=== PATIENT | female | born 1995 | race African-American/Black ===

== ENCOUNTER 2019-10-29 12:18 | Emergency (ER) | payer OTHER ==
[~2019-10-29] VITALS: Ht 162.6 cm; Wt 59.9 kg
[2019-10-29] MEDS ORDERED: cefTRIAXone SOD 250MG VIAL (J0696 PER 250MG) IM ONE (13:30)
[2019-10-29] MEDS ORDERED: AZITHROMYCIN 250MG TABLET PO ONE (13:30)
[2019-10-29] MEDS ORDERED: LIDOCAINE 1% SDV 5ML VIAL DILUENT ONE (13:30)
[2019-10-29 15:11] LABS: CHLAMYDIA DNA AMPLIFICATION POSITIVE (NEGATIVE); GC DNA AMPLIFICATION NEGATIVE (NEGATIVE)
[2019-10-29] MEDS ORDERED: FLAG500T PO (15:18)
[2019-10-29 15:24] VITALS: BP 137/68
== END 2019-10-29 15:27 | disposition home or self-care (01) ==
LOC: M ED 12:18
DX: A74.9 Chlamydial infection, unspecified (principal); B96.89 Other specified bacterial agents as the cause of diseases classified elsewhere

== ENCOUNTER → 2022-01-02 | Outpatient (CLI) | payer OTHER ==
[~2022-01-02] VITALS: Ht 162.6 cm; Wt 85.2 kg
[~2022-01-02] MED LIST: FLAG500T PO; PREN1CHW6 PO; TUMS500C PO
[2022-01-02 23:48] VITALS: BP 132/64
== END ==
LOC: M LDO 23:36
PROVIDERS: ATTEND Obstetrics & Gynecology
DX: O47.1 False labor at or after 37 completed weeks of gestation (principal); Z3A.38 38 weeks gestation of pregnancy
CPT/HCPCS: 59025; G0378; G0463

== ENCOUNTER 2022-01-04 06:25 | Outpatient (CLI) | payer OTHER ==
[2022-01-04 06:50] VITALS: BP 134/78
[2022-01-04 09:19] VITALS: BP 135/69
== END 2022-01-04 09:22 | disposition home or self-care (01) ==
LOC: M LDO 06:25
PROVIDERS: ATTEND Obstetrics & Gynecology
DX: O47.1 False labor at or after 37 completed weeks of gestation (principal); Z3A.39 39 weeks gestation of pregnancy; O23.593 Infection of other part of genital tract in pregnancy, third trimester
CPT/HCPCS: 59025; G0463

== ENCOUNTER 2022-01-09 21:18 | Inpatient (IN) | payer OTHER ==
[~2022-01-09] VITALS: Ht 162.6 cm; Wt 85.1 kg
[2022-01-09 21:33] VITALS: BP 136/72
[2022-01-09] MEDS ORDERED: LR 1,000 ML IV ONE (22:30)
[2022-01-09] MEDS ORDERED: PENICILLIN G POTASSIUM IV 5 MU in D5W MINI-BAG PLUS 100 ML IV STA (23:41)
[2022-01-09] MEDS ORDERED: METHYLERGONOVINE MALEATE 0.2 MG/ML VIAL (J2210) IM PRN (23:45)
[2022-01-09] MEDS ORDERED: OXYTOCIN INJ 10 UNITS/ML VIAL (J2590) IV PRN (23:45)
[2022-01-09] MEDS ORDERED: LACTATED RINGER'S 1000 ML IV ONE (23:45)
[2022-01-09] MEDS ORDERED: TRANEXAMIC ACID INJection 1,000 MG in NS 100 ML IV PRN (23:45)
[2022-01-09] MEDS ORDERED: OXYTOCIN DRIP 30 UNITS in IV 1 EA IV PRN ×4 (23:45)
[2022-01-09] MEDS ORDERED: LR 1,000 ML IV SCH (23:45)
[2022-01-09] MEDS: LR 1,000 ML IV SCH (23:47)
[2022-01-09] MEDS ORDERED: OXYTOCIN DRIP 30 UNITS in IV 1 EA IV SCH (23:50)
[2022-01-09 23:55] LABS: HEMATOCRIT 36.3 % (36.0-47.0); HEMOGLOBIN 12.3 g/dl (12.0-15.5); MEAN CORPUSCULAR HEMOGLOBIN 33.2 pg (27.0-33.0); MEAN CORPUSCULAR HGB CONC 33.9 g/dl (32.0-36.5); MEAN CORPUSCULAR VOLUME 98.1 fl (80.0-96.0); PLATELET COUNT, AUTOMATED 174 10^3/uL (150-450); WHITE BLOOD COUNT 9.4 10^3/uL (4.0-10.0)
[2022-01-10] VITALS (25 sets, daily range): BP systolic 100–164; BP diastolic 50–80
[2022-01-10] MEDS ORDERED: FENTANYL 2MCG/ML ROPIVACAINE 0.2% IN 0.9% NACL 100ML IVBAG As Ordered ONE (00:21)
[2022-01-10] MEDS ORDERED: FENTANYL/ROPIVACAINE/NACL BAG 100 ML EPIDURAL SCH (00:35)
[2022-01-10] MEDS ORDERED: ONDANSETRON 4MG 2ML VIAL IV PRN ×4 (00:35→11:50)
[2022-01-10] MEDS ORDERED: NALOXONE INJ 0.4MG/1ML VIAL (J2310 PER 1MG) IV PRN ×3 (00:35→04:15)
[2022-01-10] MEDS ORDERED: EPIDURAL/PCA KEYS XX PRN (00:35)
[2022-01-10] MEDS ORDERED: LR 500 ML IV PRN (00:35)
[2022-01-10] MEDS ORDERED: diphenhydrAMINE 50MG/ML VIAL (J1200) IV PRN ×2 (00:35→04:15)
[2022-01-10] MEDS: ePHEDrine SULFATE 25 MG/5 ML(5MG/ML) SYRINGE IVP PRN ×2 (01:49→01:54)
[2022-01-10] MEDS: LR 1,000 ML IV SCH ×2 (02:22→15:45)
[2022-01-10] MEDS ORDERED: TRANEXAMIC ACID INJection 1,000 MG in NS 100 ML IV PRN (03:20)
[2022-01-10] MEDS ORDERED: AZITHROMYCIN INJ 500 MG, VIAL MATE ADAPTER 1 EACH in NS 250 ML IV ONE (03:20)
[2022-01-10] MEDS ORDERED: ceFAZolin SOD 2 GM in IV 1 EA IV ONE (03:20)
[2022-01-10] MEDS ORDERED: BUPIVACAINE HCL 0.25% 10ML VIAL SC ONE (03:20)
[2022-01-10] MEDS ORDERED: BICITRA 30ML SOLN UDC PO ONE (03:20)
[2022-01-10] MEDS ORDERED: OXYTOCIN INJ 10 UNITS/ML VIAL (J2590) IV PRN (03:20)
[2022-01-10] MEDS ORDERED: ACETAMINOPHEN 650 MG SUPP PR ONE (03:20)
[2022-01-10] MEDS ORDERED: OXYTOCIN DRIP 30 UNITS in IV 1 EA IV PRN ×4 (03:20)
[2022-01-10] MEDS ORDERED: METHYLERGONOVINE MALEATE 0.2 MG/ML VIAL (J2210) IM PRN (03:20)
[2022-01-10] MEDS ORDERED: LIDOCAINE 2% W/EPINEPHRINE 20ML VIAL **PRES FREE As Ordered ONE (03:21)
[2022-01-10] MEDS ORDERED: OXYTOCIN 30 UNITS IN 0.9% NaCl 500ML IV BAG (J2590) As Ordered ONE ×2 (03:26→05:13)
[2022-01-10] MEDS ORDERED: ONDANSETRON 4MG 2ML VIAL As Ordered ONE (03:44)
[2022-01-10] MEDS ORDERED: PENICILLIN G POTASSIUM IV 2.5 MU in IV 1 EA IV SCH (04:00)
[2022-01-10] MEDS ORDERED: OXYTOCIN INJ 10 UNITS/ML VIAL (J2590) As Ordered ONE (04:11)
[2022-01-10] MEDS ORDERED: LR 1,000 ML IV SCH ×2 (04:15→04:55)
[2022-01-10] MEDS ORDERED: fentaNYL 100 MCG/2 ML INJECTION IV PRN (04:15)
[2022-01-10] MEDS ORDERED: **NOTE PATIENT COMMENT** MISC XX SCH (04:15)
[2022-01-10] MEDS ORDERED: oxyCODONE 5MG TAB PO PRN (04:15)
[2022-01-10] MEDS: SLF 3 ML SYR IV SCH ×3 (04:15→19:50)
[2022-01-10] MEDS ORDERED: METOCLOPRAMIDE INJ 10MG/2ML VIAL (J2765 PER 1) IV PRN (04:15)
[2022-01-10 04:20] LABS: CORD GAS ABE A -4.9; CORD GAS ABE V -1.8; CORD GAS HCO3 A 23.2 MEQ/L; CORD GAS HCO3 V 24.9 MEQ/L; CORD GAS O2 SAT A 62.2 %; CORD GAS PCO2 A 55.2 mmHg; CORD GAS PCO2 V 50.2 mmHg; CORD GAS PH A 7.241 UNITS; CORD GAS PH V 7.314 UNITS; CORD GAS PO2 A 27.4 mmHg; CORD GAS SBC A 19.7 MEQ/L; CORD GAS TCO2 A 24.9 MEQ/L; CORD GAS TCO2 V 26.5 MEQ/L
[2022-01-10] MEDS ORDERED: MORPHINE PRES-FREE INJ 10 MG/10 ML VIAL As Ordered ONE (04:28)
[2022-01-10] MEDS ORDERED: dexameTHASONE 4 MG/ML 1ML VIAL (J1100 PER 1MG) As Ordered ONE (04:30)
[2022-01-10] MEDS ORDERED: KETOROLAC 60MG 2ML VIAL As Ordered ONE (04:30)
[2022-01-10] MEDS ORDERED: RHOGAM 300 MCG (1500 IU) INJ (J2790) IM SCH (04:55)
[2022-01-10] MEDS ORDERED: MOM 30ML SUSPENSION UDC PO PRN (04:55)
[2022-01-10] MEDS ORDERED: OXYTOCIN INJ 10 UNITS/ML VIAL (J2590) IV ONE (04:55)
[2022-01-10] MEDS ORDERED: METHYLERGONOVINE MALEATE 0.2 MG TAB PO PRN (04:55)
[2022-01-10] MEDS ORDERED: OXYTOCIN DRIP 30 UNITS in IV 1 EA IV SCH (04:55)
[2022-01-10] MEDS ORDERED: PERCOCET 5MG/325MG TAB PO PRN ×2 (04:55)
[2022-01-10] MEDS ORDERED: ANUSOL HC CREAM 30GM TOP PRN (04:55)
[2022-01-10] MEDS ORDERED: TRANEXAMIC ACID INJection 1,000 MG in NS 100 ML IV ONE (04:55)
[2022-01-10] MEDS ORDERED: OXYTOCIN DRIP 30 UNITS in IV 1 EA IV ONE (04:55)
[2022-01-10] MEDS ORDERED: ACETAMINOPHEN TAB 650MG DOSE (2X325MG) PO PRN (04:55)
[2022-01-10] MEDS ORDERED: DOCUSATE SODIUM 100MG CAPSULE PO PRN (04:55)
[2022-01-10] MEDS: PRENATAL VITAMINS CHEWABLE TABLET PO SCH (09:04)
[2022-01-10] MEDS: KETOROLAC 30 MG/ML 1ML VIAL IV SCH ×3 (11:13→23:42)
[2022-01-11 02:00] VITALS: BP 101/54
[2022-01-11 06:00] VITALS: BP 108/53
[2022-01-11] MEDS: SIMETHICONE 80MG CHEW TAB PO PRN ×2 (06:28→20:59)
[2022-01-11 06:45] LABS: HEMATOCRIT 26.5 % (36.0-47.0); MEAN CORPUSCULAR HEMOGLOBIN 32.8 pg (27.0-33.0); MEAN CORPUSCULAR HGB CONC 33.2 g/dl (32.0-36.5); MEAN CORPUSCULAR VOLUME 98.9 fl (80.0-96.0); PLATELET COUNT, AUTOMATED 139 10^3/uL (150-450); RED BLOOD COUNT 2.68 10^6/uL (4.00-5.40); WHITE BLOOD COUNT 12.2 10^3/uL (4.0-10.0)
[2022-01-11 06:58] LABS: HEMOGLOBIN 8.8 g/dl (12.0-15.5)
[2022-01-11] MEDS: IBUPROFEN 600MG TAB PO PRN ×3 (08:11→23:46)
[2022-01-11] MEDS: PRENATAL VITAMINS CHEWABLE TABLET PO SCH (08:11)
[2022-01-11 10:00] VITALS: BP 111/53
[2022-01-11] MEDS: ACETAMINOPHEN 500 MG TAB PO PRN ×2 (13:04→21:00)
[2022-01-11 14:00] VITALS: BP 135/60
[2022-01-11 18:00] VITALS: BP 119/65
[2022-01-11 22:00] VITALS: BP 122/58
[2022-01-12 02:00] VITALS: BP 113/53
[2022-01-12 06:00] VITALS: BP 124/57
[2022-01-12] MEDS ORDERED: IBUP-1022 PO (07:05)
[2022-01-12] MEDS ORDERED: PRENCHW PO (07:05)
[2022-01-12] MEDS ORDERED: COLA100C5 PO (07:05)
[2022-01-12] MEDS ORDERED: PERCOCET PO (07:05)
[2022-01-12] MEDS: IBUPROFEN 600MG TAB PO PRN ×2 (08:45→16:35)
[2022-01-12] MEDS: ACETAMINOPHEN 500 MG TAB PO PRN ×2 (08:45→15:22)
[2022-01-12] MEDS: PRENATAL VITAMINS CHEWABLE TABLET PO SCH (08:45)
[2022-01-12] MEDS ORDERED: MEASLES,MUMPS,RUBELLA VACCINE INJ (MMR-II) (90707) SC.IMMUN ONE (09:00)
[2022-01-12 10:00] VITALS: BP 127/63
== END 2022-01-12 18:52 | disposition home or self-care (01) | DRG 773 ==
LOC: M LDO 21:18 → M LDI 23:37 → M OBS 01-10 06:28
PROVIDERS: ADMIT Obstetrics & Gynecology; ATTEND Obstetrics & Gynecology
PROC: 10D00Z1 Extraction of Products of Conception, Low, Open Approach (ICD-10-PCS; principal; 2022-01-10 04:04)
DX: O99.02 Anemia complicating childbirth (principal); O99.824 Streptococcus B carrier state complicating childbirth; Z3A.39 39 weeks gestation of pregnancy; O77.0 Labor and delivery complicated by meconium in amniotic fluid; D64.9 Anemia, unspecified; O76 Abnormality in fetal heart rate and rhythm complicating labor and delivery; O69.4XX0 Labor and delivery complicated by vasa previa, not applicable or unspecified; O69.81X0 Labor and delivery complicated by cord around neck, without compression, not applicable or unspecified; Z37.0 Single live birth

== ENCOUNTER 2022-01-18 12:17 | Inpatient (IN) | payer OTHER ==
[~2022-01-18] VITALS: Ht 162.6 cm; Wt 81.1 kg
[~2022-01-18 12:17] MED LIST changes: +COLA100C5 PO; +IBUP-1022 PO; +PERCOCET PO; +PRENCHW PO
[2022-01-18] MEDS ORDERED: ACET1TAB55 PO (12:30)
[2022-01-18 13:55] LABS: BASO % 0.1 % (0.0-1.0); EOS # 0.1 10^3/uL (0.0-0.5); EOS % 1.7 % (0.0-3.0); HEMATOCRIT 34.4 % (36.0-47.0); HEMOGLOBIN 11.3 g/dl (12.0-15.5); LYMPH # 1.9 10^3/uL (1.5-5.0); LYMPH % 23.2 % (24.0-44.0); MEAN CORPUSCULAR HEMOGLOBIN 32.2 pg (27.0-33.0); MEAN CORPUSCULAR HGB CONC 32.8 g/dl (32.0-36.5); MONO # 0.6 10^3/uL (0.0-0.8); MONO % 7.5 % (2.0-8.0); NEUTROPHILS # 5.6 10^3/uL (1.5-8.5); NEUTROPHILS % 66.8 % (36.0-66.0); PLATELET COUNT, AUTOMATED 295 10^3/uL (150-450); RED BLOOD COUNT 3.51 10^6/uL (4.00-5.40); WHITE BLOOD COUNT 8.4 10^3/uL (4.0-10.0)
[2022-01-18 14:10] LABS: APPEARANCE, URINE MANUAL CLEAR (CLEAR); BILIRUBIN, URINE MANUAL NEGATIVE (NEGATIVE); BLOOD URINE MANUAL POSITIVE (NEGATIVE); COLOR, URINE MANUAL YELLOW (YELLOW); GLUCOSE, URINE (UA) MANUAL NEGATIVE (NEGATIVE); KETONE, URINE MANUAL NEGATIVE (NEGATIVE); LEUKOCYTE ESTERASE, URINE MAN NEGATIVE (NEGATIVE); NITRITE, URINE MANUAL NEGATIVE (NEGATIVE); PROTEIN, URINE MANUAL NEGATIVE (NEGATIVE); UROBILINOGEN, URINE MANUAL NORMAL (NORMAL)
[2022-01-18] MEDS ORDERED: LABETALOL 100MG/20ML VIAL IV ONE (14:25)
[2022-01-18] MEDS ORDERED: MAG Sulf (L&D) 4 GM/100 ML 4 GM in IV 1 EA IV ONE (14:30)
[2022-01-18 14:35] LABS: ALBUMIN 3.1 GM/DL (3.2-5.2); ALT/SGPT 156 U/L (12-78); BILIRUBIN,DIRECT 0.2 MG/DL (0.0-0.2); BILIRUBIN,TOTAL 0.7 MG/DL (0.2-1.0); BLOOD UREA NITROGEN 11 MG/DL (7-18); CALCIUM LEVEL 8.9 MG/DL (8.5-10.1); CARBON DIOXIDE LEVEL 27 MEQ/L (21-32); CHLORIDE LEVEL 110 MEQ/L (98-107); CREATININE FOR GFR 0.77 MG/DL (0.55-1.30); GLOMERULAR FILTRATION RATE > 60.0 (>60); GLUCOSE, FASTING 72 MG/DL (70-100); POTASSIUM SERUM 4.4 MEQ/L (3.5-5.1); SODIUM LEVEL 142 MEQ/L (136-145); TOTAL PROTEIN 6.7 GM/DL (6.4-8.2)
[2022-01-18] MEDS ORDERED: hydrALAZINE 20MG/ML 1ML VIAL (J0360 PER 20MG) As Ordered ONE (14:38)
[2022-01-18] MEDS ORDERED: hydrALAZINE 20MG/ML 1ML VIAL (J0360 PER 20MG) IV ONE (14:40)
[2022-01-18] MEDS: MAG Sulf (OBGYN) 20GM/500ML 20,000 MG in IV 1 EA IV SCH (15:00)
[2022-01-18 15:09] LABS: SQUAMOUS EPITHELIAL CELL URINE MOD AMOUNT /hpf (SMALL AMT); WBC, URINE 0-1 /hpf (0-3)
[2022-01-18 15:10] LABS: BACTERIA, URINE SMALL AMOUNT; HYALINE CAST, URINE NONE SEEN /lpf (0-1); MUCUS, URINE SMALL AMOUNT (NEGATIVE)
[2022-01-18 15:31] LABS: INR 0.98; PROTHROMBIN TIME 13.4 SECONDS (12.7-14.5)
[2022-01-18 15:32] LABS: PARTIAL THROMBOPLASTIN TIME 30.8 SECONDS (25.9-37.0)
[2022-01-18 15:53] LABS: MAGNESIUM LEVEL 2.2 MG/DL (1.8-2.4); URIC ACID 7.6 MG/DL (2.6-6.0)
[2022-01-18 16:07] LABS: RSV AMPLIFICATION NEGATIVE (NEGATIVE)
[2022-01-18] MEDS ORDERED: FUROSEMIDE 40 MG TAB PO ONE (16:35)
[2022-01-18] MEDS ORDERED: CALCIUM GLUCONATE 1,000 MG in D5W MINI-BAG PLUS 100 ML IV PRN (16:35)
[2022-01-18] MEDS ORDERED: PREN1CHW6 PO (17:13)
[2022-01-18] MEDS ORDERED: HOME MED LIST COMPLETE! XX SCH (17:15)
[2022-01-18] MEDS: IBUPROFEN 600MG TAB PO SCH (18:00)
[2022-01-18] MEDS: ACETAMINOPHEN 500 MG TAB PO SCH (18:00)
[2022-01-18 22:51] VITALS: BP 137/84
[2022-01-18 23:00] VITALS: BP 137/74
[2022-01-19] VITALS (19 sets, daily range): BP systolic 121–156; BP diastolic 66–95
[2022-01-19] MEDS: MAG Sulf (OBGYN) 20GM/500ML 20,000 MG in IV 1 EA IV SCH ×2 (01:43→11:53)
[2022-01-19] MEDS: LR 1,000 ML IV SCH ×2 (01:44→11:53)
[2022-01-19] MEDS: IBUPROFEN 600MG TAB PO SCH ×3 (02:00→18:00)
[2022-01-19] MEDS: ACETAMINOPHEN 500 MG TAB PO SCH ×5 (06:00→23:57)
[2022-01-19 06:28] LABS: HEMATOCRIT 31.6 % (36.0-47.0); HEMOGLOBIN 10.6 g/dl (12.0-15.5); MEAN CORPUSCULAR HEMOGLOBIN 32.8 pg (27.0-33.0); MEAN CORPUSCULAR HGB CONC 33.5 g/dl (32.0-36.5); MEAN CORPUSCULAR VOLUME 97.8 fl (80.0-96.0); PLATELET COUNT, AUTOMATED 279 10^3/uL (150-450); RED BLOOD COUNT 3.23 10^6/uL (4.00-5.40)
[2022-01-19 07:04] LABS: ALT/SGPT 113 U/L (12-78); BILIRUBIN,TOTAL 0.6 MG/DL (0.2-1.0); GLOMERULAR FILTRATION RATE > 60.0 (>60); LDH LACTATE DEHYDROGENASE 323 U/L (84-246); URIC ACID 8.6 MG/DL (2.6-6.0)
[2022-01-19] MEDS ORDERED: LABETALOL 200 MG TAB PO SCH (18:00)
[2022-01-20] VITALS (29 sets, daily range): BP systolic 120–195; BP diastolic 54–101
[2022-01-20] MEDS: IBUPROFEN 600MG TAB PO SCH ×2 (02:07→10:00)
[2022-01-20] MEDS: LR 1,000 ML IV SCH ×2 (03:50→17:10)
[2022-01-20] MEDS ORDERED: **hydrALAZINE** 10 MG TAB PO ONE (04:00)
[2022-01-20] MEDS: ACETAMINOPHEN 500 MG TAB PO SCH ×3 (06:02→19:28)
[2022-01-20] MEDS: LABETALOL 200 MG TAB PO SCH ×2 (06:05→17:31)
[2022-01-20] MEDS ORDERED: LABE20TAB PO (07:14)
[2022-01-20] MEDS ORDERED: NIFEdipine 30 MG XL TAB PO STA ×2 (14:27→14:43)
[2022-01-20] MEDS ORDERED: LABETALOL 100MG/20ML VIAL As Ordered ONE (17:51)
[2022-01-20] MEDS ORDERED: LABETALOL 100MG/20ML VIAL IV STA ×2 (17:52→18:21)
[2022-01-20] MEDS ORDERED: hydrALAZINE 20MG/ML 1ML VIAL (J0360 PER 20MG) IV STA (18:35)
[2022-01-21] VITALS (12 sets, daily range): BP systolic 123–165; BP diastolic 59–93
[2022-01-21] MEDS: IBUPROFEN 600MG TAB PO SCH ×3 (02:00→17:16)
[2022-01-21] MEDS: LABETALOL 200 MG TAB PO SCH ×2 (05:28→17:16)
[2022-01-21] MEDS: ACETAMINOPHEN 500 MG TAB PO SCH ×4 (06:00→17:14)
[2022-01-21] MEDS: LR 1,000 ML IV SCH ×2 (06:30→19:50)
[2022-01-21] MEDS ORDERED: NIFEdipine 30 MG XL TAB PO SCH ×2 (09:00)
[2022-01-21 20:24] LABS: HEMATOCRIT 33.2 % (36.0-47.0); HEMOGLOBIN 10.9 g/dl (12.0-15.5); MEAN CORPUSCULAR HEMOGLOBIN 32.8 pg (27.0-33.0); MEAN CORPUSCULAR HGB CONC 32.8 g/dl (32.0-36.5); PLATELET COUNT, AUTOMATED 289 10^3/uL (150-450); RED BLOOD COUNT 3.32 10^6/uL (4.00-5.40); WHITE BLOOD COUNT 7.4 10^3/uL (4.0-10.0)
[2022-01-21] MEDS ORDERED: PROMETHAZINE 25 MG TAB PO ONE (21:10)
[2022-01-21] MEDS: NIFEdipine 30 MG XL TAB PO SCH (21:46)
[2022-01-22 01:00] VITALS: BP 144/76
[2022-01-22] MEDS: IBUPROFEN 600MG TAB PO SCH (02:00)
[2022-01-22 06:00] VITALS: BP 126/67
[2022-01-22] MEDS: LABETALOL 200 MG TAB PO SCH (06:04)
[2022-01-22] MEDS: ACETAMINOPHEN 500 MG TAB PO SCH ×2 (06:05)
[2022-01-22 07:48] LABS: HEMATOCRIT 35.3 % (36.0-47.0); HEMOGLOBIN 11.5 g/dl (12.0-15.5); MEAN CORPUSCULAR HEMOGLOBIN 31.9 pg (27.0-33.0); MEAN CORPUSCULAR HGB CONC 32.6 g/dl (32.0-36.5); MEAN CORPUSCULAR VOLUME 98.1 fl (80.0-96.0); PLATELET COUNT, AUTOMATED 319 10^3/uL (150-450); WHITE BLOOD COUNT 7.1 10^3/uL (4.0-10.0)
[2022-01-22 08:27] LABS: ALBUMIN 3.3 GM/DL (3.2-5.2); ALT/SGPT 67 U/L (12-78); BILIRUBIN,TOTAL 0.6 MG/DL (0.2-1.0); BLOOD UREA NITROGEN 10 MG/DL (7-18); CALCIUM LEVEL 9.2 MG/DL (8.5-10.1); CARBON DIOXIDE LEVEL 24 MEQ/L (21-32); CHLORIDE LEVEL 110 MEQ/L (98-107); CREATININE FOR GFR 0.88 MG/DL (0.55-1.30); GLOMERULAR FILTRATION RATE > 60.0 (>60); GLUCOSE, FASTING 85 MG/DL (70-100); POTASSIUM SERUM 4.3 MEQ/L (3.5-5.1); SODIUM LEVEL 139 MEQ/L (136-145); TOTAL PROTEIN 6.4 GM/DL (6.4-8.2)
[2022-01-22] MEDS ORDERED: NIFE1TAB52 PO (08:44)
[2022-01-22 09:58] VITALS: BP 123/67
[2022-01-22] MEDS: NIFEdipine 30 MG XL TAB PO SCH (09:58)
== END 2022-01-22 12:50 | disposition home or self-care (01) | DRG 776 ==
LOC: M ED 12:17 → M ED INP 16:33 → ENRESERV 21:54 → M LDI 22:38 → M OBS 01-19 15:40
PROVIDERS: ADMIT Obstetrics & Gynecology; ATTEND Obstetrics & Gynecology
DX: O14.15 Severe pre-eclampsia, complicating the puerperium (principal); J90 Pleural effusion, not elsewhere classified; O99.53 Diseases of the respiratory system complicating the puerperium